=== PATIENT | female | born 1940 | race Caucasian/White ===

== ENCOUNTER 2018-12-01 00:16 | Inpatient (IN) | payer MEDICARE ==
[~2018-12-01] VITALS: Ht 160 cm; Wt 69.8 kg
[2018-12-01] VITALS (7 sets, daily range): BP systolic 119–160; BP diastolic 51–77; PULSE 71–83; TEMP 97.7–99.6
[~2018-12-01 00:16] MED LIST: ASPIRIN 32325 MG/TAB PO; COQ10150 MG PO; EPA1000 MG PO; ESTRACE0.5 MG PO; GLUCOSAMINE & C1 CA1 PO; HCTZ 25MG TAB25 MG PO; PRINIVIL20 MG PO; VITAMIN B-12100 MCG PO; VITAMIN D 400400 IU PO
[2018-12-01] MEDS ORDERED: CATAPRES 0.1MG0.1 MG PO ×2 (00:26→00:27)
[2018-12-01] MEDS ORDERED: XANAX .25M0.25 MG/TA PO (00:27)
[2018-12-01] MEDS ORDERED: XARELTO10 MG PO (00:28)
[2018-12-01] MEDS ORDERED: FERRO-TIME325 MG PO (00:28)
[2018-12-01] MEDS ORDERED: MULTI VITAMINS1 TAB PO (00:29)
[2018-12-01] MEDS ORDERED: PRINIVIL40 MG PO (01:30)
[2018-12-01] MEDS ORDERED: FOLIC ACID 11 MG/TA1 PO (01:31)
[2018-12-01 02:23] LABS: PROTHROMBIN TIME 11.8 SECONDS (9.7-12.8)
--- NOTE | 2018-12-01 03:36 | NUR ---
Report received from SID Davis from [facility]. Patient arrived via EMS. Denies pain on arrival. Noted to have steri-strips to right knee from a replacement that was done on 11/12. Started IVF and antibiotics to left AC. IV started at [facility] (20G). After assessment, patient complained her pain was starting to come back. 2mg Morphine administered. 5 page and initial assessment completed. Patient resting in bed with eyes closed. CPAP in place. Call light in reach. Will continue to monitor.
[2018-12-01 05:50] LABS: BASO % 0.4 % (0.0-2.0); EOS # 0.3 (0.0-0.7); EOS % 2.9 % (0-4.0); GRAN # 6.8 (1.4-6.5); GRAN % 67.4 % (42.2-75.2); HEMATOCRIT 38.9 % (37.0-47.0); HEMOGLOBIN 12.9 g/dl (12.5-16.0); LYMPH # 1.6 (1.2-3.4); LYMPH % 15.6 % (20.0-51.0); MEAN CELL VOLUME 91 fl (80.0-100.0); MEAN CORPUSCULAR HEMOGLOBIN 30 pg (27.0-31.0); MEAN CORPUSCULAR HGB CONC 33 g/dl (33.0-37.0); MEAN PLATELET VOLUME 9.6 fl (7.4-10.4); MONO # 1.3 (0.1-0.6); MONO % 13.1 % (1.7-9.3); PLATELET COUNT 356 K/mm3 (130-400); RED BLOOD COUNT 4.27 M/mm3 (4.10-5.30); REDCELL DISTRIBUTION WIDTH-CV 12.5 % (11.5-14.5)
[2018-12-01 06:12] LABS: ALBUMIN 3.6 gm/dL (3.5-5.0); BILIRUBIN,TOTAL 0.9 mg/dL (0.0-1.0); CALCIUM 9.3 mg/dL (8.4-10.2); CREATININE, serum 0.8 (0.52-1.25); POTASSIUM 4.3 mmol/L (3.4-5.0); TOTAL PROTEIN 6.7 gm/dL (6.4-8.2)
--- NOTE | 2018-12-01 06:28 | NUR ---
Patient had an increased episode of abdominal pain, as evidenced by crying, clenching fists, and labored breathing. 2mg PRN Morphine given but was uneffective. She updated and ordered to give a repeat dose of 2mg morphine now. Administered this dose and noted this was effective. Patient is now resting with eyes closed, breathing easy, and body appears relaxed. Will continue to monitor.
--- NOTE | 2018-12-01 08:00 | NUR ---
Patient in bed resting. Alert and oriented x 3. Shift assessment complete. Fluids infusing via pump to left AC. States mild pain at this time. Refuses pain medicaiton. Denies further needs at this time.
--- NOTE | 2018-12-01 10:13 | NUR ---
SW met with the patient to discuss discharge plan. The patient lives alone in [place]. She states that her son, Vladimir, and [id number] (Tresa) live closeby. She states she was recently discharged, 11/25, from [facility] for a skilled stay; due to having right total knee surgery. She states all was going well, until she started having abdominal pain. She reports independence with ADLs and has a walker. The patient's PCP is Dr. Selvin Cortez and she receives her medications through the mail from [facility]. She reports no difficulties obtaining her meds. The patient does not have advanced directives in EMR, but she states that she does have them completed. She states her son and [id number] are her DPOA-HC. The patient plans to return home upon discharge. No identified needs at this time, but SW to continue to follow.
--- NOTE | 2018-12-01 11:47 | NUR ---
Radiation Control Worker offered prayer and support with patient.
--- NOTE | 2018-12-01 13:50 | NUR ---
Contacted [facility] preciado for diet order
--- NOTE | 2018-12-01 19:13 | NUR ---
Patient has done well throughout the day. Has been up to restroom with walker, steady gait with stand by assist. Requested pain medications twice this shift. Given per orders. Tolerating clear liquids. Denies further needs at this time. Reported off to fast food shift lead.
--- NOTE | 2018-12-01 19:40 | NUR ---
PATIENT COMPLAINS OF PAIN TO RT SHOULDER AND ABDOMEN 10/05. MEDICATED WITH MORPHINE 2MG IVP AT THIS TIME. PROVIDED WM BLANKET FOR SHOULDER.
--- NOTE | 2018-12-01 20:30 | NUR ---
Assisted patient to the bathroom, steady gait with walker. Voids 200cc of hazy yellow urine then to sink to wash her face and brush her teeth for the night. Back to bed, assisted with CPAP placement after taking HS meds. IV site to left AC without redness or swelling, fluids infusing without difficulty. Has PASCALE hose on bilaterally, SCD's placed back on patient. Rt knee with steri strips intact, recent knee replacement in October. Provided another warm blanket for her rt shoulder.
--- NOTE | 2018-12-02 01:15 | NUR ---
Assisted to BR with walker. Voids and back to bed. Reports pain 5/10, medicated with Morphine 2mg IVP at this time.
--- NOTE | 2018-12-02 03:00 | NUR ---
Assisted to bathroom, voids and back to bed. Reports pain is better at this time.
--- NOTE | 2018-12-02 04:00 | NUR ---
Up to bathroom to void, gait steady with walker. Back to bed without problem.
[2018-12-02 04:06] VITALS: BP 132/51; PULSE 78; TEMP 98.5
[2018-12-02 07:12] LABS: ALBUMIN 2.8 gm/dL (3.5-5.0); BILIRUBIN,TOTAL 0.7 mg/dL (0.0-1.0); CALCIUM 8.1 mg/dL (8.4-10.2); CREATININE, serum 0.81 (0.52-1.25); TOTAL PROTEIN 5.5 gm/dL (6.4-8.2)
[2018-12-02 07:16] LABS: BASO % 0.4 % (0.0-2.0); EOS # 0.2 (0.0-0.7); EOS % 2.4 % (0-4.0); GRAN # 6.7 (1.4-6.5); GRAN % 67.3 % (42.2-75.2); LYMPH # 1.7 (1.2-3.4); LYMPH % 17.2 % (20.0-51.0); MEAN CELL VOLUME 92 fl (80.0-100.0); MEAN CORPUSCULAR HEMOGLOBIN 30 pg (27.0-31.0); MEAN CORPUSCULAR HGB CONC 32 g/dl (33.0-37.0); MONO # 1.2 (0.1-0.6); MONO % 12.3 % (1.7-9.3); PLATELET COUNT 340 K/mm3 (130-400); REDCELL DISTRIBUTION WIDTH-CV 12.4 % (11.5-14.5)
[2018-12-02 07:29] LABS: HEMATOCRIT 34.1 % (37.0-47.0)
[2018-12-02 08:13] VITALS: BP 150/66; PULSE 73; TEMP 97.6
[2018-12-02 11:30] VITALS: BP 136/52; PULSE 68; TEMP 97.9
[2018-12-02 15:56] VITALS: BP 144/66; PULSE 80; TEMP 98.3
--- NOTE | 2018-12-02 18:00 | NUR ---
Afebrile. Denied abdominal pain. Intermittent shoulder and back pain relieved by ambulating and prn pain meds.
--- NOTE | 2018-12-02 18:54 | NUR ---
Patient upset and crying regarding her upper back pain. Has a KPad on for comfort. Medicated with Tramadol 100mg po at this time. Has IV to left AC with IVF infusing without problem. Steri strips to right knee intact.
[2018-12-02 20:06] VITALS: BP 178/71; PULSE 80; TEMP 98
--- NOTE | 2018-12-02 21:00 | NUR ---
Patient ambulates in hallway with CODING [employer] and walker. Does well.
--- NOTE | 2018-12-02 21:36 | NUR ---
Patient reports pain to upper back when she lays down and better sitting up. Medicated with Morphine 2mg IV at this time for pain 6/10. IV site leaking, IV fluids stopped at this time.
[2018-12-02 23:26] VITALS: BP 163/62; PULSE 69; TEMP 98
--- NOTE | 2018-12-03 02:38 | NUR ---
Patient reports pain to shoulders and back returning, medicated with Tramadol 100mg po at this time. Denies abdominal pain.
[2018-12-03 04:04] VITALS: BP 173/87; PULSE 70; TEMP 97.4
--- NOTE | 2018-12-03 04:51 | NUR ---
Patient's BP elevated. New IV started to left upper arm with #22 insyte on first attempt. IV Hydralazine 10mg given at this time. Patient tolerated procedure without problem.
--- NOTE | 2018-12-03 05:12 | NUR ---
Patient complains of feeling "awful", like she could pass out. Previously had elevation in her B/P and was given Hydralazine 10mg IV. Reports continued pain to upper back and shoulders, Morphine 2mg IV now.
[2018-12-03 05:14] VITALS: BP 168/77; PULSE 91; TEMP 97.7
--- NOTE | 2018-12-03 05:59 | NUR ---
Patient still reporting upper back pain. Ambulates to bathroom with assist, voids and has small amount of watery emesis. Back to bed, refuses Zofran.
[2018-12-03 06:13] LABS: BASO % 0.4 % (0.0-2.0); EOS # 0.4 (0.0-0.7); EOS % 4.2 % (0-4.0); GRAN # 6.9 (1.4-6.5); GRAN % 67.8 % (42.2-75.2); LYMPH # 1.9 (1.2-3.4); LYMPH % 18.2 % (20.0-51.0); MEAN CELL VOLUME 90 fl (80.0-100.0); MEAN CORPUSCULAR HEMOGLOBIN 30 pg (27.0-31.0); MEAN CORPUSCULAR HGB CONC 33 g/dl (33.0-37.0); MEAN PLATELET VOLUME 9.5 fl (7.4-10.4); MONO # 0.9 (0.1-0.6); MONO % 8.3 % (1.7-9.3); PLATELET COUNT 365 K/mm3 (130-400); RED BLOOD COUNT 4.03 M/mm3 (4.10-5.30); REDCELL DISTRIBUTION WIDTH-CV 12.1 % (11.5-14.5)
[2018-12-03 06:23] LABS: HEMATOCRIT 36.1 % (37.0-47.0)
[2018-12-03 06:26] LABS: ALBUMIN 3.3 gm/dL (3.5-5.0); BILIRUBIN,TOTAL 0.6 mg/dL (0.0-1.0); CALCIUM 8.7 mg/dL (8.4-10.2); CREATININE, serum 0.51 (0.52-1.25); POTASSIUM 3.5 mmol/L (3.4-5.0); TOTAL PROTEIN 6.2 gm/dL (6.4-8.2)
--- NOTE | 2018-12-03 07:24 | NUR ---
Report to Shraddha LAU, patient resting quietly in bed at this time.
[2018-12-03 08:36] VITALS: BP 165/66; PULSE 85; TEMP 97.6
[2018-12-03] MEDS ORDERED: FLAGYL500 MG PO (09:04)
[2018-12-03] MEDS ORDERED: AMOXICILLIN 8751 TAB PO (09:04)
--- NOTE | 2018-12-03 11:00 | NUR ---
Patient has been nauseated. She has also been having increased pain in her upper back. Denies chest pain and arm pain. She stated the hot pack is not helping as well. Motrin ordered for pain. She did not keep her breakfast down. Encouraged her to eat light meals until her nausea is better. Motrin given for pain. No other changes at this time. Call light within reach.
--- NOTE | 2018-12-03 11:08 | NUR ---
[facility] attended clinical rounding. Patient should dc home today after pt sees her about pain in her shoulder. Nurse reports she is walking around the [place] and is safe to return home. SW will check pt notes and follow.
[2018-12-03 12:18] VITALS: BP 139/56; PULSE 83; TEMP 98.3
--- NOTE | 2018-12-03 13:30 | NUR ---
Patient is doing better after getting the motrin. PT worked with patient and the patient stated her pain is much better and that she is not having much pain at this time. Denies nausea. Needs encouragement to do her knee exercises. No other changes at this time. Call light within reach.
[2018-12-03] MEDS ORDERED: IBU400 MG PO (15:13)
--- NOTE | 2018-12-03 16:31 | NUR ---
PT met with patient who now reports no pain. SHe will dc home today.
--- NOTE | 2018-12-03 16:50 | NUR ---
Patient is discharging home. Discharge instructions discussed with patient. Patients daughter is here to get her and is helping with getting her packed up. Discussed discharge instructions with patient and explained when follow up appointments are. Explained that she has prescriptions to get filled when they leave. Explained that Dr Brown ordered that she can take motrin and how often. Copies of discharge instructions sent with patient. Patient is being walked out via wheel chair by Clare BLANC. All belongings sent with patient.
== END 2018-12-03 16:50 | disposition home or self-care (01) | DRG 392 ==
LOC: SURG 00:16
PROVIDERS: Nurse Practitioner Family; ADMIT Internal Medicine
DX: K57.20 Diverticulitis of large intestine with perforation and abscess without bleeding (principal); I10 Essential (primary) hypertension; Z96.651 Presence of right artificial knee joint; Z66 Do not resuscitate; G47.33 Obstructive sleep apnea (adult) (pediatric); Z95.0 Presence of cardiac pacemaker
CPT/HCPCS: 99222-AI; 99232-AI; 99239; J0360; J2270; J2543; J7030

== ENCOUNTER 2018-12-18 10:20 | Emergency (ER) | payer MEDICARE ==
[~2018-12-18] VITALS: Ht 160 cm; Wt 70.5 kg
[~2018-12-18 10:20] MED LIST changes: +AMOXICILLIN 8751 TAB PO; +CATAPRES 0.1MG0.1 MG PO; +FERRO-TIME325 MG PO; +FLAGYL500 MG PO; +FOLIC ACID 11 MG/TA1 PO; +IBU400 MG PO; +MULTI VITAMINS1 TAB PO; +PRINIVIL40 MG PO; +XANAX .25M0.25 MG/TA PO; +XARELTO10 MG PO
[2018-12-18 10:34] VITALS: TEMP 97
[2018-12-18] MEDS ORDERED: HCTZ 25MG TAB25 MG PO (10:42)
[2018-12-18 11:19] LABS: COLLECTION METHOD CLEAN CATCH
[2018-12-18 11:22] LABS: BASO # 0.1 (0.0-0.2); BASO % 0.8 % (0.0-2.0); EOS # 0.2 (0.0-0.7); EOS % 2.8 % (0-4.0); GRAN # 5.2 (1.4-6.5); GRAN % 60.8 % (42.2-75.2); HEMATOCRIT 44.4 % (37.0-47.0); HEMOGLOBIN 14.8 g/dl (12.5-16.0); LYMPH # 2.1 (1.2-3.4); LYMPH % 24.9 % (20.0-51.0); MEAN CELL VOLUME 89 fl (80.0-100.0); MEAN CORPUSCULAR HEMOGLOBIN 30 pg (27.0-31.0); MEAN CORPUSCULAR HGB CONC 33 g/dl (33.0-37.0); MEAN PLATELET VOLUME 10.3 fl (7.4-10.4); MONO # 0.9 (0.1-0.6); MONO % 10.2 % (1.7-9.3); PLATELET COUNT 348 K/mm3 (130-400); RED BLOOD COUNT 4.99 M/mm3 (4.10-5.30); REDCELL DISTRIBUTION WIDTH-CV 13.2 % (11.5-14.5)
[2018-12-18 11:25] LABS: PH 6 (5-8); SQUAMOUS EPITHELIAL 0-2 /hpf; URINE APPEARANCE Clear; URINE BACTERIA None Seen /hpf; URINE BILIRUBIN Negative (NEGATIVE); URINE BLOOD 1+ (NEGATIVE); URINE COLOR Yellow; URINE GLUCOSE Negative (NEGATIVE); URINE KETONE Negative (NEGATIVE); URINE LEUKOCYTE ESTERASE 1+ (NEGATIVE); URINE NITRATE Negative (NEGATIVE); URINE PROTEIN(semi-quant) Negative (NEGATIVE); URINE RBC 0-2 /hpf; URINE UROBILINOGEN Negative (NEGATIVE)
[2018-12-18 11:36] LABS: ALANINE AMINOTRANSFERASE 21 U/L (9-52); ALBUMIN 4.2 gm/dL (3.5-5.0); ALKALINE PHOSPHATASE 70 U/L (50-136); ANION GAP 11 mmol/L (7-16); AST,SGOT 23 U/L (15-37); BILIRUBIN,TOTAL 0.7 mg/dL (0.0-1.0); BLOOD UREA NITROGEN 25 mg/dL (7-17); CALCIUM 9.9 mg/dL (8.4-10.2); CARBON DIOXIDE 27 mmol/L (22-30); CHLORIDE 99 mmol/L (98-107); CREATININE, serum 0.74 (0.52-1.25); GLUCOSE 107 mg/dL (74-106); POTASSIUM 4.2 mmol/L (3.4-5.0); SODIUM 137 mmol/L (137-145); TOTAL PROTEIN 7.1 gm/dL (6.4-8.2)
[2018-12-18 11:47] LABS: C-REACTIVE PROTEIN < 0.5 mg/dL (0.0-0.9)
[2018-12-18] MEDS ORDERED: AMOXICILLIN 8751 TAB PO (13:02)
[2018-12-18 13:04] VITALS: BP 166/76; PULSE 77
== END 2018-12-18 13:14 | disposition home or self-care (01) ==
LOC: COL.ER 10:20
PROVIDERS: Emergency Medicine
DX: K57.32 Diverticulitis of large intestine without perforation or abscess without bleeding (principal); I10 Essential (primary) hypertension; G47.33 Obstructive sleep apnea (adult) (pediatric); Z79.1 Long term (current) use of non-steroidal anti-inflammatories (NSAID); Z90.49 Acquired absence of other specified parts of digestive tract; Z90.710 Acquired absence of both cervix and uterus; Z95.0 Presence of cardiac pacemaker
CPT/HCPCS: J2270; J2405; J7030; Q9967